=== PATIENT | female | born 1960 | race Caucasian/White ===

== ENCOUNTER 2016-12-16 18:47 | Emergency (ER) | payer MEDICARE, MEDICAID ==
[~2016-12-16] VITALS: Ht 165.1 cm; Wt 40.0 kg
[~2016-12-16 18:47] MED LIST: ASAC800T PO; CLON1 SL; CYCL-36 PO; CYMB60CA PO; DEXT20TA2 PO; FENT75DI T-DERMAL; FLUTI110I INH; GABA600T PO; HYDR-3129 PO; LEVO75TA3 PO; MOME17I; RANI150T PO; REME30TA PO; TEMA15 PO; TRET10CA PO
[2016-12-16 18:49] VITALS: BP_SYST 135; BP_DIAS 9; BP_DIAS 92; PULSE 102; RESP 19; TEMP 97.8; O2SAT 95
--- NOTE | 2016-12-16 19:51 | PD ---
HPI Chief Complaint: Medical Clearance Time Seen by Provider: 19:51 Travel History International Travel<30 days: No Contact w/Intl Traveler<30days: No Traveled to known affect area: No History of Present Illness HPI 56-year-old female with history of chronic pain presents to the ED for voluntary psychiatric evaluation. The patient admits to abusing her chronic pain medications for "years." She states that she knows that if " I don't stop , I'm going to ." She estimates a 30 pound weight loss over the last 3 months. She denies suicidal or homicidal ideation. She complains of a chronic sacral decubitus and neck and back pain but denies other somatic complaints. She endorses history of seizure with withdrawal from Klonopin. She states last dose of Klonopin approximately 4 hours ago. She states last pain medication was yesterday. Adamantly denies IV drug use. PFSH Past Medical History Hx Anticoagulant Therapy: Yes ADD: Yes Anemia: Yes Arthritis: Yes Bipolar Disorder: Yes Anxiety: Yes Depression: Yes Cancer: Yes (cervical) Cardiovascular Problems: Yes Diabetes: Yes Diminished Hearing: No Endocrine: Yes Gastrointestinal Disorders: Yes (ACID REFLUX/GERD, GASTRIC BAND MIGRATED) Genitourinary: No Hepatitis: No Hiatal Hernia: No Immune Disorder: No Implanted Vascular Access Dvce: No Medical other: Yes (LOW B/P SOMETIMES) Musculoskeletal: Yes (ARTHRITIS BACK ) Neurologic: Yes (NUMBNESS L ARM) Psychiatric: Yes (Panic Attacks past 4 yrs) Reproductive: Yes Respiratory: Yes Thyroid Disease: Yes (Mary Kate's) Tetanus Vaccination: Unknown ?: Not Menopausal: Yes : 1 Para: 0 Miscarriage: 1 : 0 Past Surgical History Abdominal Surgery: Yes (gastric band 23 yrs ago, came through, 7-8 yrs ago had bypass surgery) AICD: No Body Medical Devices: PIN AND BOLT PELVIC AND R HIP Cardiac Surgery: No Ear Surgery: No Endocrine Surgery: No Eye Surgery: No Genitourinary Surgery: No Gynecologic Surgery: Yes (7lb tumor removed 4 yrs ago, PARTIAL HYSTERECTOMY) Hysterectomy: Yes Joint Replacement: No Neurologic Surgery: No Oral Surgery: Yes (TEETH EXTRACTIONS) Pacemaker: No Thoracic Surgery: No Other Surgery: Yes Family History Family Myocardial Infarction: Yes Social History Alcohol Use: No (occ. binges) Tobacco Use: Yes Substance Use: Yes (pt is abusing prescription drugs.) Allergies-Medications (Allergen,Severity, Reaction): Coded Allergies: Sulfa (Verified Allergy, Severe, photosensitive, 12/16/16) *MDRO Multi-Drug Resistant Organism (Unverified Adverse Reaction, Unknown , 12/16/16) PREVIOUS TO R LEG AREA PER PATIENT Uncoded Allergies: PINK DYE (Adverse Reaction, Unknown, Hives, 12/31/15) Reported Meds & Prescriptions Reported Meds & Active Scripts Active Review of Systems Except as stated in HPI: all other systems reviewed are Neg Physical Exam Narrative GENERAL: Cachectic white female in no acute distress.. SKIN: Focused skin assessment warm/dry. There is a 1 cm chronic sacral decubitus. Mildly erythematous, without signs of infection. HEAD: Normocephalic. EYES: No scleral icterus. No injection or drainage. PERRLA. EOMI. NECK: Supple, trachea midline. No JVD or lymphadenopathy. CARDIOVASCULAR: Regular rate and rhythm without murmurs, gallops, or rubs. RESPIRATORY: Breath sounds equal bilaterally. No accessory muscle use. GASTROINTESTINAL: Abdomen scaphoid, soft, non-tender, nondistended. Hypoactive bowel sounds. MUSCULOSKELETAL: No cyanosis, or edema. Patient is wearing a cam boot on the left lower extremity. BACK: Nontender without obvious deformity. No CVA tenderness. Data Data Last Documented VS Vital Signs Date Time Temp Pulse Resp B/P Pulse Ox O2 Delivery O2 Flow Rate FiO2 12/17/16 06:16 90 16 116/58 98 Room Air 12/16/16 18:49 97.8 Orders Complete Blood Count With Diff (12/16/16 19:57) Comprehensive Metabolic Panel (12/16/16 19:57) Urinalysis - C+S If Indicated (12/16/16 19:57) Psych Screen (12/16/16 19:57) Drug Screen, Random Urine (12/16/16 19:57) Alcohol (Ethanol) (12/16/16 19:57) Salicylates (Aspirin) (12/16/16 19:57) Tylenol (Acetaminophen) (12/16/16 19:57) Lorazepam (Ativan) (12/16/16 21:00) Ketorolac Inj (Toradol Inj) (12/16/16 21:00) Diet Diabetic (12/17/16 Breakfast) Diet 1800 Ada Cons Carb (12/17/16 Lunch) Labs Laboratory Tests Test 12/16/16 20:20 White Blood Count 10.1 TH/MM3 Red Blood Count 4.75 MIL/MM3 Hemoglobin 14.0 GM/DL Hematocrit 41.7 % Mean Corpuscular Volume 87.7 FL Mean Corpuscular Hemoglobin 29.4 PG Mean Corpuscular Hemoglobin 33.5 % Concent Red Cell Distribution Width 20.6 % Platelet Count 492 TH/MM3 Mean Platelet Volume 8.1 FL Neutrophils (%) (Auto) 70.4 % Lymphocytes (%) (Auto) 20.0 % Monocytes (%) (Auto) 7.8 % Eosinophils (%) (Auto) 0.6 % Basophils (%) (Auto) 1.2 % Neutrophils # (Auto) 7.1 TH/MM3 Lymphocytes # (Auto) 2.0 TH/MM3 Monocytes # (Auto) 0.8 TH/MM3 Eosinophils # (Auto) 0.1 TH/MM3 Basophils # (Auto) 0.1 TH/MM3 CBC Comment DIFF FINAL Differential Comment Urine Color YELLOW Urine Turbidity CLEAR Urine pH 6.5 Urine Specific [place] 1.006 Urine Protein NEG mg/dL Urine Glucose (UA) NEG mg/dL Urine Ketones NEG mg/dL Urine Occult Blood NEG Urine Nitrite NEG Urine Bilirubin NEG Urine Urobilinogen LESS THAN 2.0 MG/DL Urine Leukocyte Esterase NEG Urine RBC LESS THAN 1 /hpf Urine WBC 1 /hpf Urine Squamous Epithelial <1 /hpf Cells Microscopic Urinalysis Comment CULT NOT INDICATED Sodium Level 133 MEQ/L Potassium Level 3.8 MEQ/L Chloride Level 100 MEQ/L Carbon Dioxide Level 26.8 MEQ/L Anion Gap 6 MEQ/L Blood Urea Nitrogen 6 MG/DL Creatinine 0.59 MG/DL Estimat Glomerular Filtration 106 ML/MIN Rate Random Glucose 82 MG/DL Calcium Level 9.4 MG/DL Total Bilirubin 0.4 MG/DL Aspartate Amino Transf 15 U/L (AST/SGOT) Alanine Aminotransferase 35 U/L (ALT/SGPT) Alkaline Phosphatase 102 U/L Total Protein 7.9 GM/DL Albumin 3.7 GM/DL Salicylates Level 4.4 MG/DL Urine Opiates Screen NEG Acetaminophen Level LESS THAN 2.0 MCG/ML Urine Barbiturates Screen NEG Urine Amphetamines Screen NEG Urine Benzodiazepines Screen NEG Urine Cocaine Screen NEG Urine Cannabinoids Screen NEG Ethyl Alcohol Level LESS THAN 3 MG/DL MDM Medical Decision Making Medical Screen Exam Complete: Yes Emergency Medical Condition: Yes Differential Diagnosis Adjustment disorder versus anxiety versus bipolar versus depression versus dementia versus electrolyte disorder versus malingering versus mood disorder versus ODD versus psychosis versus PTSD versus schizophrenia versus schizoaffective disorder versus substance-induced mood disorder versus other Narrative Course 56-year-old female with history of chronic pain presents to the ED for voluntary psychiatric evaluation. The patient admits to abusing her chronic pain medications for "years." She states that she knows that if " I don't stop , I'm going to ." She estimates a 30 pound weight loss over the last 3 months. She denies suicidal or homicidal ideation. She complains of a chronic sacral decubitus and neck and back pain but denies other somatic complaints. She endorses history of seizure with withdrawal from Klonopin. She states last dose of Klonopin approximately 4 hours ago. She states last pain medication was yesterday. Adamantly denies IV drug use. Vitals reviewed. Physical exam reveals a cachectic white female in no acute distress. Small chronic sacral decubitus without signs of infection. Wearing a cam boot on the left leg. No concerning abnormalities of the labs. Patient was administered 2 mg Ativan by mouth, 60 mg grams Toradol IM. She is medically clear for psychiatric evaluation. Please see psychiatric notes for disposition. Hannah Tierney Dec 16, 2016 19:51
[2016-12-16 20:36] LABS: AUTOMATED NEUTROPHIL # 7.1 TH/MM3 (1.8-7.7); BASOPHIL # 0.1 TH/MM3 (0-0.2); BASOPHIL % 1.2 % (0.0-2.0); EOSINOPHIL # 0.1 TH/MM3 (0-0.4); EOSINOPHIL % 0.6 % (0.0-4.0); HEMATOCRIT 41.7 % (35.0-46.0); HEMO FLAGS DIFF FINAL; MEAN CELL VOLUME 87.7 FL (80.0-100.0); MEAN CORPUSCULAR HEMOGLOBIN 29.4 PG (27.0-34.0); MEAN CORPUSCULAR HGB CONC 33.5 % (32.0-36.0); MONO % 7.8 % (0.0-8.0); NEUT % 70.4 % (16.0-70.0); PLATELET COUNT 492 TH/MM3 (150-450); RED BLOOD COUNT 4.75 MIL/MM3 (4.00-5.30); RED CELL DISTRIBUTION WIDTH 20.6 % (11.6-17.2); WHITE BLOOD COUNT 10.1 TH/MM3 (4.0-11.0)
[2016-12-16 20:41] LABS: BLOOD, URINE NEG (NEG); GLUCOSE,URINE NEG (NEG); KETONE, URINE NEG (NEG); NITRITE,URINE NEG (NEG); PH, URINE 6.5 (5.0-8.5); SQUAMOUS EPITHELIAL CELL URINE <1 /hpf (0-5); URINE COLOR YELLOW (YELLW/STRAW)
[2016-12-16 20:49] LABS: AMPHETAMINE, URINE NEG (NEG); BARBITURATES, URINE NEG (NEG); COCAINE, URINE NEG (NEG)
[2016-12-16 20:53] LABS: COMMENT (UR) CULT NOT INDICATED; CULTURE IF INDICATED CULT NOT INDICATED
[2016-12-16 20:58] LABS: ANION GAP 6 MEQ/L (5-15); AST (GOT) 15 U/L (15-37); BICARBONATE 26.8 MEQ/L (21.0-32.0); BLOOD UREA NITROGEN 6 MG/DL (7-18); CHLORIDE 100 MEQ/L (98-107); GLOMERULAR FILTRATION RATE 106 ML/MIN (>89); POTASSIUM 3.8 MEQ/L (3.5-5.1); SODIUM (NA) 133 MEQ/L (136-145)
[2016-12-16 21:00] LABS: ACETAMINOPHEN LESS THAN 2.0 MCG/ML (10.0-30.0); ALT (GPT) 35 U/L (10-53)
[2016-12-16] MEDS ORDERED: LORazepam 2 MG TAB PO ONE (21:00)
[2016-12-16] MEDS ORDERED: KETOROLAC TROMETHAMINE 60 MG/2 ML (IM) VIAL IM ONE (21:00)
[2016-12-16 21:02] LABS: ALKALINE PHOSPHATASE 102 U/L (45-117); TOTAL BILIRUBIN ADULT 0.4 MG/DL (0.2-1.0)
[2016-12-16 23:22] VITALS: BP 125/88; PULSE 113; RESP 18; O2SAT 98
[2016-12-17 02:03] VITALS: BP 153/92; PULSE 99; RESP 19; O2SAT 77; O2SAT 97
[2016-12-17 06:16] VITALS: BP 116/58; PULSE 90; RESP 16; O2SAT 98
[2016-12-17 13:17] VITALS: BP 122/78; PULSE 100; RESP 18; O2SAT 98
[2016-12-17] MEDS ORDERED: clonazePAM 0.5 MG TAB PO ONE (15:45)
[2016-12-17 16:09] VITALS: BP 122/78; TEMP 98
== END 2016-12-17 15:36 | disposition home or self-care (01) ==
LOC: NEPD 18:47 → NEPJ 12-17 15:36
DX: G89.29 Other chronic pain (principal); F19.20 Other psychoactive substance dependence, uncomplicated; L89.159 Pressure ulcer of sacral region, unspecified stage; M54.2 Cervicalgia; M54.9 Dorsalgia, unspecified; F31.9 Bipolar disorder, unspecified; E11.9 Type 2 diabetes mellitus without complications; Z98.84 Bariatric surgery status; Z87.891 Personal history of nicotine dependence
CPT/HCPCS: 80053; 80307; 81001; 85025; 96372; 99284; J1885

== ENCOUNTER 2017-02-14 19:23 | Emergency (ER) | payer MEDICARE, MEDICAID ==
[2017-02-14 19:28] VITALS: BP 154/87; PULSE 127; RESP 16; TEMP 97.5; O2SAT 98
[2017-02-14] MEDS ORDERED: SODIUM CHLOR 0.9% 1000 ML INJ 1,000 ML IV SCH ×2 (20:13→21:35)
[2017-02-14] MEDS ORDERED: FLUMAZENIL 0.5 MG/5 ML VIAL IV PUSH PRN (20:15)
[2017-02-14] MEDS ORDERED: ONDANSETRON HCL 4 MG/2 ML VIAL IV PUSH PRN (20:15)
[2017-02-14] MEDS ORDERED: LORazepam 2 MG/ML VIAL IV PUSH PRN ×3 (20:15)
[2017-02-14] MEDS ORDERED: LORazepam 2 MG/ML VIAL IV PUSH ONE (20:15)
[2017-02-14] MEDS ORDERED: ACETAMINOPHEN 325 MG TAB PO PRN (20:15)
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
[2017-02-14 20:47] VITALS: BP 150/88; PULSE 112; RESP 16; O2SAT 99
[2017-02-14] MEDS ORDERED: SERO50TA PO (20:55)
[2017-02-14] MEDS ORDERED: DEPA250T2 PO (20:55)
[2017-02-14] MEDS ORDERED: KLON2TAB PO (20:55)
[2017-02-14] MEDS ORDERED: FENT12DI T-DERMAL (20:57)
[2017-02-14] MEDS ORDERED: SYNT25TA PO (20:59)
[2017-02-14 21:05] LABS: AUTOMATED NEUTROPHIL # 13.1 TH/MM3 (1.8-7.7); BASOPHIL # 0.1 TH/MM3 (0-0.2); BASOPHIL % 0.8 % (0.0-2.0); EOSINOPHIL % 0.1 % (0.0-4.0); HEMATOCRIT 47.3 % (35.0-46.0); HEMO FLAGS DIFF FINAL; LYMPHOCYTE # 1.2 TH/MM3 (1.0-4.8); MEAN CELL VOLUME 90.2 FL (80.0-100.0); MEAN CORPUSCULAR HEMOGLOBIN 29.4 PG (27.0-34.0); MEAN CORPUSCULAR HGB CONC 32.6 % (32.0-36.0); MONO % 6.7 % (0.0-8.0); NEUT % 84.4 % (16.0-70.0); PLATELET COUNT 365 TH/MM3 (150-450); RED BLOOD COUNT 5.24 MIL/MM3 (4.00-5.30); RED CELL DISTRIBUTION WIDTH 15.9 % (11.6-17.2); WHITE BLOOD COUNT 15.5 TH/MM3 (4.0-11.0)
[2017-02-14 21:31] LABS: ALT (GPT) 37 U/L (10-53); ANION GAP 16 MEQ/L (5-15); AST (GOT) 42 U/L (15-37); BICARBONATE 16.6 MEQ/L (21.0-32.0); CHLORIDE 99 MEQ/L (98-107); GLOMERULAR FILTRATION RATE 81 ML/MIN (>89); SODIUM (NA) 132 MEQ/L (136-145)
[2017-02-14 21:32] LABS: ACETAMINOPHEN LESS THAN 2.0 MCG/ML (10.0-30.0)
[2017-02-14 21:35] LABS: ALKALINE PHOSPHATASE 92 U/L (45-117); BLOOD UREA NITROGEN 6 MG/DL (7-18); TOTAL BILIRUBIN ADULT 0.2 MG/DL (0.2-1.0)
--- NOTE | 2017-02-14 21:36 | RADRPT ---
EXAM DATE/TIME: 02/14/2017 21:19 [facility] COMPARISON: No previous studies available for comparison. INDICATIONS : Trauma, fall today. RADIATION DOSE: 46.13 CTDIvol (mGy) MEDICAL HISTORY : Seizures. Gastroesophageal reflux disease. Mary Kate's thyroiditis, diabetes, cardiovascular disease, cervical cancer. SURGICAL HISTORY : Hysterectomy. ENCOUNTER: Initial ACUITY: 1 day PAIN SCALE: 5/10 LOCATION: Bilateral head TECHNIQUE: Multiple contiguous axial images were obtained of the head. Using automated exposure control and adj ustment of the mA and/or kV according to patient size, radiation dose was kept as low as reasonably a chievable to obtain optimal diagnostic quality images. DICOM format image data is available electro nically for review and comparison. FINDINGS: CEREBRUM: The ventricles are normal for age. No evidence of midline shift, mass lesion, hemorrhage or acute in farction. No extra-axial fluid collections are seen. POSTERIOR FOSSA: The cerebellum and brainstem are intact. The 4th ventricle is midline. The cerebellopontine angle i s unremarkable. EXTRACRANIAL: The visualized portion of the orbits is intact. SKULL: The calvaria is intact. No evidence of skull fracture. CONCLUSION: Normal examination for a patient of this age. Brannon Love MD on February 14, 2017 at 21:33 Board Certified Radiologist. This report was verified electronically.
--- NOTE | 2017-02-14 21:38 | RADRPT ---
EXAM DATE/TIME: 02/14/2017 21:19 [facility] COMPARISON: No previous studies available for comparison. INDICATIONS : Trauma, fall today. RADIATION DOSE: 36.69 CTDIvol (mGy) MEDICAL HISTORY : Seizures. Gastroesophageal reflux disease. Mary Kate's thyroiditis, diabetes, cardiovascular disease, cervical cancer. SURGICAL HISTORY : Hysterectomy. ENCOUNTER: Initial ACUITY: 1 day PAIN SCORE: 5/10 LOCATION: Bilateral facial TECHNIQUE: Volumetric scanning of the facial bones was performed. Using automated exposure control and adjustme nt of the mA and/or kV according to patient size, radiation dose was kept as low as reasonably achiev able to obtain optimal diagnostic quality images. DICOM format image data is available electronicall y for review and comparison. FINDINGS: No acute facial bone fractures. Paranasal sinuses are clear. Extensive dental caries. No significant soft tissue abnormality. CONCLUSION: 1. No acute findings. Extensive dental caries. Brannon Love MD on February 14, 2017 at 21:34 Board Certified Radiologist. This report was verified electronically.
--- NOTE | 2017-02-14 21:44 | RADRPT ---
EXAM DATE/TIME: 02/14/2017 20:59 [facility] COMPARISON: No previous studies available for comparison. INDICATIONS : Left Rib Pain MEDICAL HISTORY : Cardiovascular disease. Arthritis. Gastroesophageal reflux disease. Cervical Ca SURGICAL HISTORY : Gastric bypass. Hysterectomy. Fusion, cervical. Hip and Pelvis Orthopedic surgery ENCOUNTER: Initial ACUITY: 1 day PAIN SCORE: 10/10 LOCATION: Left chest FINDINGS: There is a left sixth lateral rib fracture. No other rib fractures are identified. No pneumothorax or effusion. CONCLUSION: 1. Left sixth rib fracture laterally. Brannon Love MD on February 14, 2017 at 21:42 Board Certified Radiologist. This report was verified electronically.
[2017-02-14] MEDS ORDERED: ACETAMINOPHEN/HYDROcodone 325 MG/5 MG TAB PO ONE (21:45)
[2017-02-14] MEDS ORDERED: THIAMINE INJ 100 MG in SODIUM CHLORIDE 0.9% INJ 100 ML IV ONE (21:45)
[2017-02-14] MEDS ORDERED: POTASSIUM CHLORIDE 10 MEQ CONTROLLED RELEASE TAB PO ONE (21:45)
[2017-02-14 21:48] VITALS: BP 128/75; PULSE 106; RESP 16; O2SAT 99
[2017-02-14] MEDS: LORazepam 2 MG TAB PO PRN (22:06)
[2017-02-14 23:02] LABS: BICARBONATE 19.4 MEQ/L (21.0-32.0); POTASSIUM 3.3 MEQ/L (3.5-5.1)
--- NOTE | 2017-02-14 23:26 | PD ---
Data Data Last Documented VS Vital Signs Date Time Temp Pulse Resp B/P Pulse Ox O2 Delivery O2 Flow Rate FiO2 02/14/17 21:48 106 16 128/75 99 Room Air 02/14/17 19:[address] Brain W/O Iv Contrast(Rout) (02/14/17 20:13) Ct Facial Bones W/O Iv Cont (02/14/17 20:13) Ice/Cold Pack (02/14/17 20:13) Ribs, Uni (W/Exp Cxr-Min 3vw) (02/14/17 20:13) Complete Blood Count With Diff (02/14/17 20:13) Comprehensive Metabolic Panel (02/14/17 20:13) Urinalysis - C+S If Indicated (02/14/17 20:13) Psych Screen (02/14/17 20:13) Drug Screen, Random Urine (02/14/17 20:13) Alcohol (Ethanol) (02/14/17 20:13) Salicylates (Aspirin) (02/14/17 20:13) Tylenol (Acetaminophen) (02/14/17 20:13) Lorazepam Inj (Ativan Inj) (02/14/17 20:15) Sodium Chlor 0.9% 1000 Ml Inj (Ns 1000 M (02/14/17 20:13) Alcohol Withdrawal Asmt-Ciwa ONCE (02/14/17 20:13) Ondansetron Inj (Zofran Inj) (02/14/17 20:15) Acetaminophen (Tylenol) (02/14/17 20:15) Flumazenil Inj (Romazicon Inj) (02/14/17 20:15) Lorazepam (Ativan) (02/14/17 20:15) Lorazepam Inj (Ativan Inj) (02/14/17 20:15) Lorazepam (Ativan) (02/14/17 20:15) Lorazepam Inj (Ativan Inj) (02/14/17 20:15) Lorazepam Inj (Ativan Inj) (02/14/17 20:15) Lorazepam Inj (Ativan Inj) (02/14/17 20:15) Wound Care (02/14/17 20:17) Acetamin-Hydrocod 325-5 Mg ([place] 5-325 (02/14/17 21:45) Sodium Chlor 0.9% 1000 Ml Inj (Ns 1000 M (02/14/17 21:35) Thiamine Inj (Thiamine Inj) (02/14/17 21:45) Potassium Chloride (Kcl) (02/14/17 21:45) Basic Metabolic Panel (Bmp) (02/14/17 21:59) Protein Corrected Calcium(Pcc) (02/14/17 22:20) Calcium Gluconate (Calcium Gluconate) (02/14/17 23:30) Fentanyl 75 Mcg Patch.72 Hr (Duragesic (02/14/17 23:30) Resp Incentive Spirometry (02/14/17 ) Labs Laboratory Tests Test 02/14/17 02/14/17 20:30 22:20 White Blood Count 15.5 TH/MM3 Red Blood Count 5.24 MIL/MM3 Hemoglobin 15.4 GM/DL Hematocrit 47.3 % Mean Corpuscular Volume 90.2 FL Mean Corpuscular Hemoglobin 29.4 PG Mean Corpuscular Hemoglobin 32.6 % Concent Red Cell Distribution Width 15.9 % Platelet Count 365 TH/MM3 Mean Platelet Volume 9.5 FL Neutrophils (%) (Auto) 84.4 % Lymphocytes (%) (Auto) 8.0 % Monocytes (%) (Auto) 6.7 % Eosinophils (%) (Auto) 0.1 % Basophils (%) (Auto) 0.8 % Neutrophils # (Auto) 13.1 TH/MM3 Lymphocytes # (Auto) 1.2 TH/MM3 Monocytes # (Auto) 1.0 TH/MM3 Eosinophils # (Auto) 0.0 TH/MM3 Basophils # (Auto) 0.1 TH/MM3 CBC Comment DIFF FINAL Differential Comment Sodium Level 132 MEQ/L 139 MEQ/L Potassium Level 3.0 MEQ/L 3.3 MEQ/L Chloride Level 99 MEQ/L 108 MEQ/L Carbon Dioxide Level 16.6 MEQ/L 19.4 MEQ/L Anion Gap 16 MEQ/L 12 MEQ/L Blood Urea Nitrogen 6 MG/DL 5 MG/DL Creatinine 0.74 MG/DL 0.42 MG/DL Estimat Glomerular Filtration 81 ML/MIN 156 ML/MIN Rate Random Glucose 201 MG/DL 79 MG/DL Calcium Level 8.4 MG/DL 7.1 MG/DL Total Bilirubin 0.2 MG/DL Aspartate Amino Transf 42 U/L (AST/SGOT) Alanine Aminotransferase 37 U/L (ALT/SGPT) Alkaline Phosphatase 92 U/L Total Protein 8.3 GM/DL 6.5 GM/DL Albumin 3.7 GM/DL Salicylates Level 6.1 MG/DL Acetaminophen Level LESS THAN 2.0 MCG/ML Ethyl Alcohol Level 85 MG/DL Protein Corrected Calcium 7.4 MG/DL [facility] Medical Record Reviewed: Yes Supervised Visit with KEYUR: Yes Narrative Course I, Dr. Zamora, have reviewed the advance practice practitioner's documentation and am in agreement unless otherwise dictated below, met with the patient face to face, made the diagnosis, and the medical decision making was done by me. *My assessment and Findings: The patient is 57. Her workup today reveals the following: CBC & BMP Diagram 02/14/17 20:30 02/14/17 22:20 Initial anion gap was 16 with a repeat anion gap of 12 after the patient received 2 L of saline The alcohol level is 85 Last 24 hours Impressions Ribs X-Ray 02/14/172012 Signed Impressions: Service Date/Time: Tuesday, February 14, 2017 20:59 - CONCLUSION: 1. Left sixth rib fracture laterally. Brannon Love MD Maxillofacial CT 02/14/172012 Signed Impressions: Service Date/Time: Tuesday, February 14, 2017 21:19 - CONCLUSION: 1. No acute findings. Extensive dental caries. Brannon Love MD Head CT 02/14/172012 Signed Impressions: Service Date/Time: Tuesday, February 14, 2017 21:19 - CONCLUSION: Normal examination for a patient of this age. Brannon Love MD Patient reassessed at 11:30 PM and at that point complained of chronic pain being the etiology for relapse into alcoholism and for her suicidal ideations. She states that if only her pain can be controlled she wouldn't feel suicidal anymore. Psychiatrist screen has been ordered. A fentanyl patch has been ordered for the lateral left sixth rib fracture. Incentive spirometry has also been ordered. The patient has follow-up with pain management, Dr. Jurado, and states she intends to follow up with him as an outpatient. Diagnosis Primary Impression: Drug abuse and dependence Additional Impressions: Left rib fracture Qualified Code: S22.32XA - Closed fracture of one rib of left side, initial encounter Skin abrasion Med/Other Pt SpecificInfo: Prescription(s) given Alonzo Zamora MD Feb 14, 2017 23:26
[2017-02-14 23:30] LABS: CALCIUM-PROTEIN CORRECTED 7.4 MG/DL (8.5-10.1)
[2017-02-14] MEDS ORDERED: fentaNYL 75 MCG/HR PATCH T-DERMAL ONE (23:30)
[2017-02-14] MEDS ORDERED: CALCIUM GLUCONATE 500 MG TAB PO ONE (23:30)
[2017-02-14 23:58] VITALS: BP 146/94; PULSE 105; RESP 20; O2SAT 96
[2017-02-15] VITALS: O2SAT 96
[2017-02-15 00:02] LABS: BLOOD, URINE NEG (NEG); GLUCOSE,URINE 300 mg/dL (NEG); KETONE, URINE NEG (NEG); MUCUS URINE FEW /lpf (OCC); NITRITE,URINE NEG (NEG); URINE COLOR LIGHT-YELLOW (YELLW/STRAW)
[2017-02-15 00:04] LABS: COMMENT (UR) CULT NOT INDICATED; CULTURE IF INDICATED CULT NOT INDICATED
[2017-02-15 00:14] LABS: AMPHETAMINE, URINE NEG (NEG); BARBITURATES, URINE NEG (NEG); COCAINE, URINE NEG (NEG)
[2017-02-15] MEDS: LORazepam 2 MG TAB PO PRN ×2 (00:21→14:04)
[2017-02-15] MEDS ORDERED: CALCIUM GLUCONATE INJ 1 GM in DEXTROSE 5% IN WATER 100ML INJ 100 ML IV ONE ×2 (00:45)
[2017-02-15] MEDS: LORazepam 1 MG TAB PO PRN ×2 (02:38→07:18)
[2017-02-15 05:27] VITALS: BP 121/78; PULSE 100; RESP 16; O2SAT 98
[2017-02-15 09:40] VITALS: BP 164/104; PULSE 109; RESP 24; O2SAT 98
[2017-02-15] MEDS: LORazepam 2 MG/ML VIAL IV PUSH PRN ×2 (09:48→16:21)
--- NOTE | 2017-02-15 15:50 | PD.PSY.CON ---
Provisional Diagnosis Admission Date Date of consultation: 02/15/2017 [place]. 1. Polysubstance dependence with drug-induced mood disorder [place] II. Deferred History of Present Illness Service Psychiatry Consult Requested By Emergency department Reason for Consult Voluntary psychiatric evaluation Primary Care Physician DO AMNA Dubose Ms. Yousif is a 57-year-old female with a reported history of depression/bipolar disorder who presented voluntarily for detox and because of a fall. Patient's alcohol level was slightly elevated although her urine toxicology was negative. Documentation from the ED provider suggests that the patient abuses prescription opiates and alcohol. Reviewing the electronic medical record, I see no prior psychiatric contact within our system. Patient seen and examined. Chart reviewed. Case discussed with nursing staff. On my examination today, the patient presents as tearful and dysphoric. She says that she is depressed but has to pull herself together for her son. She endorses some hopeless and worthless feelings. Sleep is reportedly disturbed. She says that she experiences visual hallucinations when she is particularly sleep deprived but denies AVH otherwise. She says that the only reason she doesn't kill herself is because of her son. Once she knows that he is doing well in life, she would contemplate suicide, although he is presently struggling. She denies any homicidal ideation. No hypomanic or manic symptoms noted. Remainder of the psychiatric ROS is negative. Past psychiatric history: The patient reports psychiatric diagnoses as noted above. She is not currently under the care of a psychiatrist. She reports that she was recently psychiatrically admitted to the [facility]. She endorses a history of suicide attempt by overdose. She has a history of ECT treatments several years ago reportedly. Family history: The patient does endorse a family history of mental illness but denies a history of suicide. Chemical dependency history: The patient minimizes the extent of her substance use. She tells me "I don't misuse any [of her prescription medications], but all of a sudden they'll be gone." Social history: Patient is single. She has an adopted son. She has a bachelor' s degree. 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 Denies any history. Denies any legal history. Denies any access to guns or firearms. With the patient's permission, nursing staff has obtain collateral from the patient's sister. I have discussed this collateral with the nurse. Sister is apparently gravely concerned about the patient's substance use. She is in the process of filing what sounds like either a [place] act or an ex parte. Review of Systems ROS Limitations: Poor Historian Except as stated in HPI: all other systems reviewed are Neg Past Family Social History Coded Allergies: Sulfa (Verified Allergy, Severe, photosensitive, 02/14/17) *MDRO Multi-Drug Resistant Organism (Unverified Adverse Reaction, Unknown , 02/14/17) PREVIOUS TO R LEG AREA PER PATIENT Uncoded Allergies: PINK DYE (Adverse Reaction, Unknown, Hives, 12/31/15) Past Medical History See electronic medical record Reported Medications Levothyroxine (Synthroid)25 Mcg Tab25 Mcg PO DAILY #30 TAB Ref 0 02/14/17 Fentanyl Patch 72 HR 12 Mcg/Hr Patch1 Patch T-DERMAL Q72H #10 PATCH Ref 0 Remove old patch when new one placed. 02/14/17 Quetiapine (Seroquel)50 Mg Tab50 Mg PO BID #60 TAB Ref 0 02/14/[address] (Depakote DR)250 Mg [id number] Mg PO BID #60 TAB Ref 0 02/14/17 Clonazepam (Klonopin)2 Mg Tab2 Mg PO BID #60 TAB Ref 0 02/14/17 Current Medications Medications (Trade) Dose Ordered Sig/Tarsha Route Start Time Stop Time Status Last Admin (Zofran Inj) 4 mg Q8H PRN IV PUSH 02/14/17 20:15 (Tylenol) 650 mg Q4H PRN PO 02/14/17 20:15 (Romazicon Inj) 0.2 mg Q1M PRN IV PUSH 02/14/17 20:15 (Ativan) 1 mg Q4H PRN PO 02/14/17 20:15 02/15/17 07:18 (Ativan Inj) 1 mg Q4H PRN IV PUSH 02/14/17 20:15 02/15/17 03:57 (Ativan) 2 mg Q2H PRN PO 02/14/17 20:15 02/15/17 14:04 (Ativan Inj) 2 mg Q2H PRN IV PUSH 02/14/17 20:15 02/15/17 09:48 (Ativan Inj) 2 mg Q1H PRN IV PUSH 02/14/17 20:15 (Ativan Inj) 2 mg Q15M PRN IV PUSH 02/14/17 20:15 Patient's Strengths (min. 2) In a monitored setting. Verbally fluent. Physical Exam Physical exam completed by ED provider. On my examination today, the patient appears to be in no acute physical distress. No motor abnormalities noted. Labs and vitals reviewed: Vital Signs Vital Signs Date Time Temp Pulse Resp B/P Pulse Ox O2 Delivery O2 Flow Rate FiO2 02/15/17 09:40 109 24 164/104 98 Room Air 02/14/17 19:28 97.5 Lab Results Laboratory Tests Test 02/14/17 02/14/17 02/14/17 20:30 22:20 23:21 White Blood Count 15.5 TH/MM3 Red Blood Count 5.24 MIL/MM3 Hemoglobin 15.4 GM/DL Hematocrit 47.3 % Mean Corpuscular Volume 90.2 FL Mean Corpuscular Hemoglobin 29.4 PG Mean Corpuscular Hemoglobin 32.6 % Concent Red Cell Distribution Width 15.9 % Platelet Count 365 TH/MM3 Mean Platelet Volume 9.5 FL Neutrophils (%) (Auto) 84.4 % Lymphocytes (%) (Auto) 8.0 % Monocytes (%) (Auto) 6.7 % Eosinophils (%) (Auto) 0.1 % Basophils (%) (Auto) 0.8 % Neutrophils # (Auto) 13.1 TH/MM3 Lymphocytes # (Auto) 1.2 TH/MM3 Monocytes # (Auto) 1.0 TH/MM3 Eosinophils # (Auto) 0.0 TH/MM3 Basophils # (Auto) 0.1 TH/MM3 CBC Comment DIFF FINAL Differential Comment Total Bilirubin 0.2 MG/DL Aspartate Amino Transf 42 U/L (AST/SGOT) Alanine Aminotransferase 37 U/L (ALT/SGPT) Alkaline Phosphatase 92 U/L Albumin 3.7 GM/DL Salicylates Level 6.1 MG/DL Acetaminophen Level LESS THAN 2.0 MCG/ML Ethyl Alcohol Level 85 MG/DL Sodium Level 139 MEQ/L Potassium Level 3.3 MEQ/L Chloride Level 108 MEQ/L Carbon Dioxide Level 19.4 MEQ/L Anion Gap 12 MEQ/L Blood Urea Nitrogen 5 MG/DL Creatinine 0.42 MG/DL Estimat Glomerular Filtration 156 ML/MIN Rate Random Glucose 79 MG/DL Calcium Level 7.1 MG/DL Protein Corrected Calcium 7.4 MG/DL Total Protein 6.5 GM/DL Urine Color LIGHT-YELLOW Urine Turbidity CLEAR Urine pH 5.0 Urine Specific [place] 1.006 Urine Protein NEG mg/dL Urine Glucose (UA) 300 mg/dL Urine Ketones NEG mg/dL Urine Occult Blood NEG Urine Nitrite NEG Urine Bilirubin NEG Urine Urobilinogen LESS THAN 2.0 MG/DL Urine Leukocyte Esterase NEG Urine RBC LESS THAN 1 /hpf Urine WBC 1 /hpf Urine Mucus FEW /lpf Microscopic Urinalysis Comment CULT NOT INDICATED Urine Opiates Screen NEG Urine Barbiturates Screen NEG Urine Amphetamines Screen NEG Urine Benzodiazepines Screen NEG Urine Cocaine Screen NEG Urine Cannabinoids Screen NEG Mental Status Examination Speech: Other (somewhat slurred) Orientation: Person, Place (at least) Memory: Impaired (describe) Thought Process: Circumstantial Thought Content: Other (No delusions) Hallucination Type: None Attention and Concentration: Easily Distracted Suicidal Ideation: No (conditionally denies SI, see above) Previous Suicide Attempts: Yes Homicidal Ideation: No Previous Homicide Attempts: No Insight: Poor Judgment: Poor Affect: Other (tearful, dysphoric) Mood: Sad Assessment & Plan Problem List: (1) Other psychoactive substance dependence with psychoactive substance-induced mood disorder ICD Code: F19.24 Assessment & Plan 57-year-old female presenting voluntarily to the emergency department. Patient describes depressive symptomatology, and collateral suggest that the patient has comorbid substance use issues. I do believe that the patient's current symptoms are severe enough to warrant psychiatric stabilization on an inpatient unit. I believe that she would be best served on a dual diagnosis unit, where both her mood and chemical dependency issues can be addressed simultaneously. I have instructed the nursing staff to initiate referrals to local dual diagnosis units. Patient may be transferred to the [facility] while awaiting final disposition to dual diagnosis unit. Arias Kim MD Feb 15, 2017 15:50
[2017-02-15 17:03] VITALS: BP 173/85; PULSE 99; RESP 18; TEMP 98.4; O2SAT 99
[2017-02-15] MEDS ORDERED: HYDR-3533 PO (20:42)
== END 2017-02-15 21:06 ==
LOC: NEPC 19:23 → NEPJ 02-15 21:06
DX: S22.32XA Fracture of one rib, left side, initial encounter for closed fracture (principal); W19.XXXA Unspecified fall, initial encounter; F19.24 Other psychoactive substance dependence with psychoactive substance-induced mood disorder; F11.20 Opioid dependence, uncomplicated; K21.9 Gastro-esophageal reflux disease without esophagitis; F10.10 Alcohol abuse, uncomplicated
CPT/HCPCS: 70450; 70486; 71101; 80048; 80053; 80307; 81001; 84155; 85025; 96361; 96365; 96375; 96376; 99285; J0610; J2060; J3411; J7030